=== PATIENT | female | born 1945 | race Caucasian/White ===

== ENCOUNTER 2017-01-03 07:47 | Day surgery (SDC) | payer OTHER, MEDICARE ==
[2016-12-26 12:43] VITALS: BMI 48.8
--- NOTE | 2016-12-29 11:51 | HP ---
Admitting History and Physical - Primary Care Physician PCP: Ellis Dodson - Admission Chief Complaint: left breast cancer History of Present Illness: 71 year old postmenapausal female with screening mammogram showing left breast mass. US revealed 1.3 cm irregular mass at 3:00. US core bx 3:00 left breast was performed but patient refused a clip placement. pathology showed infiltrating mammary carcinoma. MRI breast showed newly diagnosed left breast cancer 9 to 10:00 localized and no contralateral findings. History Source: Patient Limitations to Obtaining History: No Limitations - Past Medical History Cardiovascular: Yes: HTN Endocrine: Yes: Diabetes Mellitus Additional Past Medical History: macular degeneration Right LE cellulitis 2016 - Past Surgical History Additional Past Surgical History: hospitalized for RLE cellulitis 1979 and 2015 - Advance Directives Advance Directives: Yes: Living Will, Health Care Proxy - Smoking History Smoking history: Never smoked Have you smoked in the past 12 months: No Aproximately how many cigarettes per day: 0 - Alcohol/Substance Use Hx Alcohol Use: No Home Medications - Allergies Allergies/Adverse Reactions: Allergies Allergy/AdvReac Type Severity Reaction Status Date / Time No Known Allergies Allergy Verified 10/07/16 08:07 - Home Medications Home Medications: Ambulatory Orders Metformin HCl [Glucophage] 1,000 mg PO BID 02/08/14 Glimepiride [Amaryl -] 1.5 mg PO DAILY 10/07/16 Insulin Glargine,Hum.rec.anlog [Lantus Solostar PEN (NF)] 30 units SQ DAILY Insulin Glargine,Hum.rec.anlog [Lantus Solostar PEN (NF)] 18 units SQ HS Lisinopril [Prinivil] 10 mg PO DAILY 12/26/16 Family Disease History - Family Disease History Family History: Denies Physical Examination Constitutional: Yes: Well Nourished, No Distress Breast(s): Yes: Other ( diffusely nodular breast tissue post bx changes left breast no palpable massess or adenopathy) Problem List - Problems (1) Breast cancer, left breast Code(s): C50.912 - MALIGNANT NEOPLASM OF UNSPECIFIED SITE OF LEFT FEMALE BREAST Qualifiers: Breast location: overlapping sites of breast Patient gender: female Qualified Code(s): C50.812 - Malignant neoplasm of overlapping sites of left female breast Assessment/Plan Left breast wide excision MRI localization,lymphoscintigram, sentenel node biopsy possible axillary node dissection
[2017-01-03] MEDS ORDERED: GUM MASTIC/STORAX/MSAL/ALCOHOL 1 DRP DROPSBTL MC ONE (12:35)
[2017-01-03] MEDS ORDERED: MIDAZOLAM HCL 2 MG/2 ML SINGLE DOSE VIAL ONE (13:20)
[2017-01-03] MEDS ORDERED: KETOROLAC TROMETHAMINE 30 MG/1 ML VIAL IVPUSH PRN (13:24)
[2017-01-03] MEDS ORDERED: DEXTROSE 5%-0.45% SALINE 1,000 ML IV SCH (13:30)
[2017-01-03] MEDS ORDERED: PROPOFOL 20 ML ONE ×2 (13:31)
[2017-01-03] MEDS ORDERED: SUCCINYLCHOLINE CHLORIDE 200 MG/10 ML VIAL ONE (13:32)
[2017-01-03] MEDS ORDERED: ROCURONIUM BROMIDE 50 MG/5 ML VIAL ONE (13:32)
[2017-01-03] MEDS ORDERED: LIDOCAINE HCL 2% 100 MG/5 ML DISP.SYRIN ONE (13:32)
[2017-01-03] MEDS ORDERED: ceFAZolin SODIUM 1 GM VIAL ONE (13:46)
[2017-01-03] MEDS ORDERED: DEXAMETHASONE SOD PHOSPHATE 4 MG/1 ML VIAL ONE (13:52)
[2017-01-03] MEDS ORDERED: PHENYLEPHRINE HCL 10 MG/1 ML SINGLE DOSE VIAL ONE (13:54)
[2017-01-03] MEDS ORDERED: ONDANSETRON 4 MG/2 ML VIAL IVPB PRN (13:58)
[2017-01-03] MEDS ORDERED: GLYCOPYRROLATE 0.2 MG/1 ML VIAL ONE (14:43)
[2017-01-03] MEDS ORDERED: ONDANSETRON 4 MG/2 ML VIAL ONE (14:43)
[2017-01-03] MEDS ORDERED: NEOSTIGMINE METHYLSULFATE 0.5 MG/ML - 10 ML MDV ONE (14:43)
[2017-01-03] MEDS ORDERED: LACTATED RINGERS SOLUTION 1,000 ML IV SCH (15:30)
[2017-01-03] MEDS ORDERED: oxyCODONE HCL 5 MG TABLET PO PRN (15:40)
[2017-01-03] MEDS ORDERED: PROMETHAZINE HCL 25 MG/1 ML VIAL IVPUSH PRN (15:41)
[2017-01-03] MEDS ORDERED: KETOROLAC TROMETHAMINE 30 MG/1 ML VIAL ONE (15:46)
[2017-01-03 16:25] VITALS: TEMP 98.3
[2017-01-03 17:46] VITALS: BP 122/69; PULSE 71
--- NOTE | 2017-01-04 16:36 | OP ---
DATE OF OPERATION: 01/03/2017 PREOPERATIVE DIAGNOSIS: Left breast cancer. POSTOPERATIVE DIAGNOSIS: Left breast cancer. PROCEDURE: Left partial mastectomy with tissue transfer and central lymph node biopsy. ANESTHESIA: General, intubated. ATTENDING SURGEON: Camden Dodson MD ASSISTANT BUYER: RAKESH Fontana ESTIMATED BLOOD LOSS: Minimal. COMPLICATIONS: None. PROCEDURE: Patient was made aware of the risks and benefits of the procedure and consented. She was placed in the supine position. Preoperatively she had gone to MRI, where a wire was placed next to the left breast indexed lesion, and then to Nuclear Medicine for injection of technetium for lymphatic mapping. After general anesthesia was induced, the patient was intubated. Then 3 mL of 1% isosulfan blue were locally infiltrated into peritumoral tissues. The operative site was prepped and draped in the usual sterile fashion. Waiting approximately 10 minutes, with gentle manual compression, a curvilinear incision was made in the left axilla using blunt and sharp dissection. Tissues were dissected down to the left axilla, revealing 4 distinct blue hot lymph nodes, which were surgically excised and submitted as left axillary sentinel nodes. The counts, after removal of these nodes, were less than 10% of the original baseline counts. The wound was copiously irrigated with normal saline. Hemostasis maintained by electrocautery. The wound was closed with deep 3-0 Vicryl followed by running subcuticular 4-0 Monocryl. The breast was then approached. A curvilinear incision was made next to the wire using electrocautery. Thick skin flaps were made and tissues around the wire were then sharply excised and submitted with a short suture superior, long suture lateral. Specimen radiograph confirmed the presence of the indexed lesion, which was also palpable. Additional segments were taken medial, lateral, superior, inferior, deep, and anterior, with clips at the new margins. The wound was copiously irrigated with normal saline, hemostasis maintained by electrocautery. Thick tissue flaps and skin flaps were made, which were rotated into the tissues and closed with multiple layers of 2-0 Vicryl [id number] sutures. Skin was then closed with deep 3-0 Vicryl followed by running subcuticular 4-0 Monocryl. Dermabond, sterile dressing, as well as a compression bra were then applied and the patient, having tolerated the procedure well, was transferred to the recovery room in excellent condition. CAMDEN DODSON M.D. KEN/[id number]
--- NOTE | 2017-01-06 10:57 | PATH ---
Surgical Pathology Report Patient Name: DENNIS HARRISON [facility]. Rec. #: [id number] /Age/Gender: 1945 (Age: 71) / F Account: [id number] Location: [facility] AMBULATORY Taken: 01/04/2017 Received: 01/04/2017 Reported: 01/06/2017 Physicians: Ellis Dodson M.D. Specimen(s) Received A: LEFT AXILLARY SENTINEL NODE B: LEFT BREAST WIDE EXCISION C: LEFT BREAST MEDIAL MARGIN D: LEFT BREAST LATERAL MARGIN E: LEFT BREAST ANTERIOR MARGIN F: LEFT BREAST DEEP MARGIN G: LEFT BREAST SUPERIOR MARGIN H: LEFT BREAST INFERIOR MARGIN Clinical History Left breast Ca Final Diagnosis A. lymph node, left axillary sentinel, excision: Four lymph nodes, negative for metastatic carcinoma (0/4). B. breast, left, wide excision: Invasive lobular carcinoma, pleomorphic type (nuclear grade 3), measuring 1.4 cm in greatest dimension, microscopically. (see note) Lobular carcinoma in situ (LCIS), pleomorphic and classical type. Invasive carcinoma is close to (< 1 mm) THE ANTERIOR MARGIN. SEE SPECIMENS C-H FINAL MARGINS. NO LYMPHOVASCULAR INVASION IS IDENTIFIED. REMAINING BREAST TISSUE SHOWS CYSTIC AND PAPILLARY APOCRINE METAPLASIA AND ATYPICAL DUCTAL HYPERPLASIA (ADH). PRIOR BIOPSY SITE CHANGES ARE PRESENT. PATHOLOGIC STAGE (pTNM): pT1c pN0. SEE ALSO INVASIVE CARCINOMA CASE SUMMARY BELOW. Note: The carcinoma is negative for E-cadherin (performed at [facility]) which supports lobular phenotype. C. breast, left, medial margin, excision: Benign breast tissue. D. breast, left, lateral margin, excision: Benign breast tissue. E. breast, left, anterior margin, excision: Breast tissue showing few foci of LCIS, classical type. F. breast, left, deep margin, excision: Benign fibroadipose tissue and skeletal muscle. G. breast, left, superior margin, excision: Benign breast tissue. H. breast, left, inferior margin, excision: Benign breast tissue. Comments Breast Invasive Carcinoma: Surgical Pathology Cancer Case Summary Based on AJCC/UICC TNM, 7th edition Procedure _X_ Excision with image-guided localization Lymph Node Sampling _X_ [place] lymph node(s) Specimen Laterality _X_ Left Tumor Size: Size of Largest Invasive Carcinoma: 1.4 cm Tumor Focality _X_ Single focus of invasive carcinoma Macroscopic and Microscopic Extent of Tumor Nipple _X_ Not applicable (excisions less than total mastectomy) Ductal Carcinoma In Situ (DCIS) _X_ No DCIS is present Histologic Type of Invasive Carcinoma : _X_ Invasive lobular carcinoma Histologic Grade: (Stratton Histologic Score) Tubular Differentiation _X_ Score cannot be determined Nuclear Pleomorphism _X_ Score 3 Mitotic Rate _X_ Score 2 Overall Grade _X_ Score cannot be determined. Margins _X_ Margins uninvolved by invasive carcinoma Distance from closest margin: Invasive carcinoma is < 1mm from the anterior margin in wide excision B. Final anterior margin E is negative for carcinoma. Lymph-Vascular Invasion _X_ Not identified Lymph Nodes Total number of lymph nodes examined (sentinel and nonsentinel): 4 Number of sentinel lymph nodes examined: 4 Number of lymph nodes with macrometastases ( > 2 mm): 0 Number of lymph nodes with micrometastases (>0.2 mm to 2 mm and/or >200cells):0 Number of lymph nodes with isolated tumor cells (=0.2 mm and =200 cells): 0 Extranodal Extension _X_ Not applicable Pathologic Staging (pTNM) Primary Tumor (Invasive Carcinoma): pT1c Regional Lymph Nodes (pN): pN0 (sn) Biomarker Studies Results of ER and LA studies performed on this specimen (block B1) at [facility] are as follows: ER (clone [id number] mouse monoclonal antibody by [employer]): 100 % nuclear staining with strong intensity (Positive). LA (clone16 mouse monoclonal antibody by [employer]): 80 % nuclear staining with strong intensity (Positive). Results of Her2 and Ki67 studies will be reported separately in an addendum. Positive and negative controls (internal if applicable) show appropriate results. Formalin fixation and cold ischemic times are within current ASCO/CAP recommendations for ER, LA and Her2 testing. Electronically Signed Kim Lancaster M.D. Addendum Reported: 01/09/2017 Addendum Diagnosis Results of Her2 (IHC) & Ki-67 studies performed at [place], [place] ([id number]) are as follows: Her2 IHC (EP3 from [employer], formerly known as [id number], using [employer] Polymer Refine detection kit): 1+ (Negative). Ki-67: ~20% (Intermediate). Positive and negative controls (internal if applicable) show appropriate results. Kim Lancaster M.D. Gross Description A. Received in formalin, labeled "left axillary sentinel node," are 4 mistry, irregular lymph nodes with attached fat ranging from 0.8 x 0.6 x 0.4 cm to 2.0 x 0.8 x 0.8 cm. The specimens are sectioned and entirely submitted in 7 cassettes as follows: 1-one whole bisected lymph node; 2-3-one whole trisected lymph node; 4-5-one whole trisected lymph node; 6-7-one whole trisected lymph node. B. Received in formalin, labeled "left breast wide excision," is a 5.8 x 4.5 x 2.3 cm. mistry-yellow, irregular portion of fibroadipose tissue with a needle localization wire present. There is a short suture marking the superior aspect and a long suture marking the lateral aspect, per the surgeon. There is no skin present. The specimen is inked as follows: superior and lateral blue; inferior green; medial yellow; anterior red; deep black. The specimen is serially sectioned from superior to inferior. Sectioning reveals a 1.3 x 1.0 x 1.0 cm mistry, ill-defined, firm mass abutting the anterior margin. The mass is at 0.6 cm from the deep margin, 0.7 cm from the inferior margin and 0.9 cm from the medial margin. There is a separate 0.3 x 0.3 x 0.2 cm mistry, firm nodule at 1.2 cm superior to the mass. The nodule is at 0.4 cm from the deep margin. The remaining breast parenchyma displays foci of fibrous tissue. Junior Accountant Bookkeeper sections are submitted in 11 cassettes as follows: 1-full-face section of mass with anterior, medial and deep margins; 4-0-housipudqg mass with anterior, medial and deep margins; 4-6-fibrous tissue surrounding mass with anterior, lateral and deep margins; 1-1-jyjsgizi nodule each with anterior and deep margins; 9-section between mass and nodule with anterior and deep margins; 10-superior margin; 11-inferior margin. Time to formalin fixation: 3 minutes Total formalin fixation time: Approximately 27 hours. C. Received in formalin, labeled "left breast medial margin," is a 3.5 x 1.8 x 0.8 cm irregular portion of fibroadipose tissue with a clip marking the new margin, per the surgeon. The new margin is inked green and the specimen is serially sectioned. The specimen is entirely submitted in 4 cassettes. D. Received in formalin, labeled "left breast lateral margin," is a 3.2 x 2.1 x 0.9 cm irregular portion of fibroadipose tissue with a clip marking the new margin, per the surgeon. The new margin is inked green and the specimen is serially sectioned. The specimen is entirely submitted in 3 cassettes. E. Received in formalin, labeled "left breast anterior margin," is a 1.5 x 1.1 x 0.8 cm irregular portion of fibroadipose tissue with a clip marking the new margin, per the surgeon. The new margin is inked green and the specimen is serially sectioned. The specimen is entirely submitted in 2 cassettes. F. Received in formalin, labeled "left breast deep margin" is a 3.3 x 2.7 x 1.0 cm irregular portion of fibroadipose tissue with a clip marking the new margin, per the surgeon. The new margin is inked green and the specimen is serially sectioned. The specimen is entirely submitted in 4 cassettes. G. Received in formalin, labeled "left breast superior margin," is a 3.2 x 2.5 x 0.7 cm irregular portion of fibroadipose tissue with a clip marking the new margin, per the surgeon. The new margin is inked green and the specimen is serially sectioned. The specimen is entirely submitted in 4 cassettes. H. Received in formalin, labeled "left breast inferior margin," is a 2.7 x 2.0 x 0.7 cm irregular portion of fibroadipose tissue with a clip marking the new margin, per the surgeon. The new margin is inked green and the specimen is serially sectioned. The specimen is entirely submitted in 3 cassettes. 01/04/2017 saudi01/04/2017
== END 2017-01-03 17:47 | disposition home or self-care (01) ==
LOC: FASU 07:47
PROVIDERS: ATTEND Surgery Surgical Oncology
PROC: 0HBU0ZZ Excision of Left Breast, Open Approach (ICD-10-PCS; principal; 2017-01-03 13:00)
PROC: 07B60ZX Excision of Left Axillary Lymphatic, Open Approach, Diagnostic (ICD-10-PCS; 2017-01-03 13:00)
PROC: C71L1ZZ Planar Nuclear Medicine Imaging of Upper Chest Lymphatics using Technetium 99m (Tc-99m) (ICD-10-PCS; 2017-01-03 13:00)
PROC: 0JX60ZB Transfer Chest Subcutaneous Tissue and Fascia with Skin and Subcutaneous Tissue, Open Approach (ICD-10-PCS; 2017-01-03 13:00)
DX: C50.912 Malignant neoplasm of unspecified site of left female breast (principal); I10 Essential (primary) hypertension; E11.9 Type 2 diabetes mellitus without complications; Z79.4 Long term (current) use of insulin; Z87.2 Personal history of diseases of the skin and subcutaneous tissue; H35.30 Unspecified macular degeneration
CPT/HCPCS: 77021-TC; 78195-TC; 88307-TC; 88342-TC; 94760; A4648; A9541; C1887; G0206-TC

== ENCOUNTER 2017-01-16 08:02 | Emergency (ER) | payer OTHER, MEDICARE ==
[2017-01-16 08:07] VITALS: BP 149/84; PULSE 102; TEMP 98.1; BMI 48.8
--- NOTE | 2017-01-16 08:14 | PDOC ---
History of Present Illness - General Chief Complaint: Wound Stated Complaint: SURGICAL WOUND DRAINAGE Time Seen by Provider: 01/16/17 08:13 History Source: Patient Exam Limitations: No Limitations - History of Present Illness Initial Comments: 01/16/17 08:15 71y F hx of IDDM, HTN, recent dx of infiltrating mammary carcinoma s/p lumpectomy approximately 01/03, has been doing well since but this morning she took a pad off her bra and noticed dark red blood spurting from her wound. The patient notes taht she has had bruisiing since almost immediately after the surgery to her breast and LUQ, but no active bleeding. Pt notes she has had URI like symptoms (nasal congestion, mild cough, denies fever/chills, briones) and is recently started on augmentin/flonase/mucinex. pt denies any cp, lightheadedness. Pt is not on any blood thinners. Past History - Past Medical History Allergies/Adverse Reactions: Allergies Allergy/AdvReac Type Severity Reaction Status Date / Time No Known Allergies Allergy Verified 10/07/16 08:07 Home Medications: Ambulatory Orders Metformin HCl [Glucophage] 1,000 mg PO BID 02/08/14 Glimepiride [Glimepiride -] 1.5 mg PO DAILY 10/07/16 Insulin Glargine,Hum.rec.anlog [Lantus Solostar PEN -] 30 units SQ DAILY Insulin Glargine,Hum.rec.anlog [Lantus Solostar PEN -] 18 units SQ HS 12/26/16 Lisinopril [Prinivil] 10 mg PO DAILY 12/26/16 Oxycodone HCl/Acetaminophen [Percocet 5-325 mg Tablet] 1 - 2 tab PO Q6H PRN #30 tab MDD 6 01/03/17 Zinc [Zinc Lozenge] 25 mg PO ASDIR PRN 01/03/17 Anemia: No Asthma: No Cancer: Yes (Left Breast) Cardiac Disorders: No CVA: No COPD: No CHF: No Dementia: No Diabetes: Yes GI Disorders: No Disorders: No HTN: No Hypercholesterolemia: No Liver Disease: No Seizures: No Thyroid Disease: No - Psycho/Social/Smoking Cessation Hx Anxiety: No Suicidal Ideation: No Smoking History: Unknown if ever smoked Have you smoked in the past 12 months: No Number of Cigarettes Smoked Daily: 0 Information on smoking cessation initiated: No Hx Alcohol Use: No Drug/Substance Use Hx: No Substance Use Type: None Hx Substance Use Treatment: No Review of Systems - Review of Systems Able to Perform ROS?: Yes Comments:: 01/16/17 08:18 Constitutional - no reported Fever, Chills, weakness, HEENT: no reported vision changes, sore throat Respiratory: no reported cough, sob, hemoptysis Cardiac: no reported chest pain, palpitations, light headedness, leg swelling Abd/GI: no reported abd pain, nausea, vomiting, blood per rectum, melena, diarrhea : no reported dysuria, frequency, discharge Musculskelatal - no reported back pain, joint swelling skin - +Bleding wound no reported bruising, erythema, rash neurological: no reported headache, numbness, focal weakness, tingling, ataxia, weakness hematologic: no reported anemia, easy bruising, easy bleeding *Physical Exam - Vital Signs Last Vital Signs Temp Pulse Resp BP Pulse Ox 98.1 F 102 H 18 149/84 98 01/16/17 08:05 01/16/17 08:05 01/16/17 08:05 01/16/17 08:05 01/16/17 08:05 - Physical Exam Comments: 01/16/17 08:18 GENERAL: The patient is awake, alert, and fully oriented, Nontoxic - in no acute distress. Obese LUNGS: Breath sounds equal, clear to auscultation bilaterally. No wheezes, no rhonchi, no rales. HEART: Regular rate and rhythm, ABDOMEN: Soft, nontender, obese abdomen EXTREMITIES: Normal range of motion, b/l pitting edema +2 to knee,no calf tenderness NEUROLOGICAL: No facial assymetry, Normal speech, SKIN: s/p lumpectomy, wound with steristrips in place on the superior lateral quadrant of L breast and in the mid breast with mild oozing. ecchymosis noted on the lower breast and tracking into the LUQ of abdomen, oozing of dark red blood that is non foul smelling on palpation of wound area. No erythmea, induration, fluctuance, tenderness noted. wound edges are clean Medical Decision Making - Medical Decision Making 01/16/17 08:26 71y F presenting with bleeding of her wound site of the L breast s/p lumpectomy 2 weeks ago. on exam pt has ecchymosis in the L braest with some dark red blood when pressure applied. suspect hematoma/oozing blood with dehiscence of wound. wound margins clean no signs of infection/abcess, no symptoms of anemia case d/w dr. Avila - recommends sending her to his office now for evaluation. I discussed the physical exam findings, ancillary test results and final diagnoses with the patient. I answered all of the patient's questions. The patient was satisfied with the care received and felt comfortable with the discharge plan and treatment plan. The patient will call their primary care physician within 24 hours to arrange follow-up and will return to the Emergency Department with any new, persistent or worsening symptoms. *DC/Admit/Observation/Transfer Diagnosis at time of Disposition: Hematoma (nontraumatic) of breast Wound dehiscence, surgical Qualifiers: Encounter type: initial encounter Qualified Code(s): T81.31XA - Disruption of external operation (surgical) wound, not elsewhere classified, initial encounter - Discharge Dispostion Disposition: HOME Condition at time of disposition: Stable Admit: No - Referrals Referrals: Ellis Dodson MD [Staff Physician] - - Patient Instructions Additional Instructions: Please proceed directly to Dr. Avila's office for evaluation of your hematoma. Print Language: CITIZEN OF [place]
== END 2017-01-16 08:28 | disposition home or self-care (01) ==
LOC: FER 08:02
DX: T81.31XA Disruption of external operation (surgical) wound, not elsewhere classified, initial encounter (principal); Y83.8 Other surgical procedures as the cause of abnormal reaction of the patient, or of later complication, without mention of misadventure at the time of the procedure; S20.02XA Contusion of left breast, initial encounter; Y82.9 Unspecified medical devices associated with adverse incidents; E11.9 Type 2 diabetes mellitus without complications; Z79.4 Long term (current) use of insulin; Z79.01 Long term (current) use of anticoagulants
CPT/HCPCS: 36415; 85027; 99281-25

== ENCOUNTER 2017-03-28 08:41 | Day surgery (SDC) | payer OTHER, MEDICARE ==
[2017-03-24 17:34] VITALS: BMI 48.4
--- NOTE | 2017-03-28 09:58 | HP ---
Past Medical History - Primary Care Physician PCP:: Frandy Salazar - Admission Chief Complaint: postmenopausal vaginal bleeding History of Present Illness: 71 yo f with hx of DM, HTN, obesity and postmenopausal vaginal bleeding . admitted for hysteroscopy D&C, risks , benfit ,ulternatives discussed History Source: Patient Limitations to Obtaining History: No Limitations - Past Medical History Cardiovascular: Yes: HTN Endocrine: Yes: Diabetes Mellitus - Past Surgical History Hx Myomectomy: No Hx Transabdominal Cerclage: No - Advance Directives Advance Directives: Yes: Living Will, Health Care Proxy - Smoking History Smoking history: Unknown if ever smoked Have you smoked in the past 12 months: No Aproximately how many cigarettes per day: 0 - Alcohol/Substance Use Hx Alcohol Use: No - Social History History of Recent Travel: No Home Medications - Allergies Allergies/Adverse Reactions: Allergies Allergy/AdvReac Type Severity Reaction Status Date / Time No Known Allergies Allergy Verified 03/28/17 09:47 - Home Medications Home Medications: Ambulatory Orders Metformin HCl [Glucophage] 1,000 mg PO BID 02/08/14 Glimepiride [Glimepiride -] 2 mg PO DAILY 10/07/16 Lisinopril [Prinivil] 10 mg PO DAILY 12/26/16 Zinc [Zinc Lozenge] 25 mg PO ASDIR PRN 01/03/17 Bilberry 100 mg PO DAILY 03/24/17 Calcium Carb/Magnesium Oxid/D3 [Calcium Magnesium + D Tablet] 03/24/17 Insulin Glargine,Hum.rec.anlog [Toujeo Solostar] 50 SQ DAILY 03/24/17 Vitamin D - 03/24/17 Review of Systems - Review of Systems Constitutional: reports: No Symptoms Eyes: reports: No Symptoms HENT: reports: No Symptoms Neck: reports: No Symptoms Cardiovascular: reports: No Symptoms Respiratory: reports: No Symptoms Gastrointestinal: reports: No Symptoms Genitourinary: reports: No Symptoms Breasts: reports: No Symptoms Reported Musculoskeletal: reports: No Symptoms Integumentary: reports: No Symptoms Neurological: reports: No Symptoms Endocrine: reports: No Symptoms Hematology/Lymphatic: reports: No Symptoms Psychiatric: reports: No Symptoms Physical Exam-BUSINESS AND FINANCIAL COUNSEL Vital Signs: Vital Signs Temperature 98.1 F 03/28/17 09:46 Pulse Rate 85 03/28/17 09:46 Respiratory Rate 20 03/28/17 09:46 Blood Pressure 163/81 03/28/17 09:46 O2 Sat by Pulse Oximetry (%) 96 03/28/17 09:40 Constitutional: Yes: Well Nourished, No Distress, Calm Eyes: Yes: WNL, Conjunctiva Clear, EOM Intact HENT: Yes: WNL, Atraumatic, Normocephalic Neck: Yes: WNL, Supple, Trachea Midline Cardiovascular: Yes: WNL, Regular Rate and Rhythm Respiratory: Yes: WNL, Regular, CTA Bilaterally Gastrointestinal: Yes: WNL ...Rectal Exam: Yes: WNL Renal/: Yes: WNL External Genitalia: Yes: Normal Internal Exam Deferred: No Vaginal Exam: Yes: Normal, Bleeding Cervix: Yes: Normal, Bleeding Uterus: Yes: Normal Adnexa: Not Palpable: Left, Right Breast(s): Yes: WNL Musculoskeletal: Yes: WNL Extremities: Yes: WNL Integumentary: Yes: WNL Neurological: Yes: WNL, Alert, Oriented ...Motor Strength: WNL Psychiatric: Yes: WNL, Alert, Oriented Problem List - Problem (1) Postmenopausal bleeding Code(s): N95.0 - POSTMENOPAUSAL BLEEDING (2) Breast cancer Code(s): C50.919 - MALIGNANT NEOPLASM OF UNSP SITE OF UNSPECIFIED FEMALE BREAST Qualifiers: Patient sex: female Laterality: left Assessment/Plan hysteroscopy D&C
[2017-03-28] MEDS ORDERED: PROPOFOL 20 ML ONE ×2 (10:01)
[2017-03-28] MEDS ORDERED: ONDANSETRON 4 MG/2 ML VIAL IVPB PRN (11:11)
[2017-03-28] MEDS ORDERED: oxyCODONE HCL 5 MG TABLET PO PRN ×2 (11:11→11:19)
[2017-03-28] MEDS ORDERED: IBUPROFEN 800 MG/8 ML IJ IVPB PRN (11:11)
[2017-03-28] MEDS ORDERED: IBUPROFEN 600 MG TABLET (FP) PO PRN (11:11)
[2017-03-28] MEDS ORDERED: ELECTROLYTE-148 SOLN 1,000 ML IV SCH (11:15)
[2017-03-28] MEDS ORDERED: ONDANSETRON 4 MG/2 ML VIAL IVPUSH PRN (11:19)
[2017-03-28] MEDS ORDERED: ACETAMINOPHEN 325 MG TABLET (FP) PO PRN (11:19)
[2017-03-28] MEDS ORDERED: LACTATED RINGERS SOLUTION 1,000 ML IV SCH (11:30)
[2017-03-28 12:20] VITALS: TEMP 98
[2017-03-28 14:40] VITALS: BP 133/56
[2017-03-28 14:52] VITALS: PULSE 82
--- NOTE | 2017-03-29 13:51 | PATH ---
Surgical Pathology Report Patient Name: DENNIS HARRISON [facility]. Rec. #: [id number] /Age/Gender: 1945 (Age: 71) / F Account: [id number] Location: [facility] SURGICAL Taken: 03/28/2017 Received: 03/28/2017 Reported: 03/29/2017 Physicians: Frandy Salazar M.D. Specimen(s) Received A: ENDOCERVICAL CURETTINGS B: ENDOMETRIAL CURETTINGS C: ENDOMETRIAL POLYP Clinical History Endometrial thickening, postmenopausal bleeding Final Diagnosis A. ENDOCERVIX, CURETTAGE: FRAGMENTS OF BENIGN ENDOCERVICAL TISSUE WITH SQUAMOUS METAPLASIA. FRAGMENTS OF BENIGN SQUAMOUS EPITHELIUM. B. ENDOMETRIUM, CURETTAGE: FRAGMENT OF ENDOMETRIAL POLYP. BACKGROUND STRIPS OF ATROPHIC ENDOMETRIUM. FRAGMENTS OF BENIGN ENDOCERVICAL TISSUE AND BENIGN SQUAMOUS EPITHELIUM. C. ENDOMETRIAL POLYP: FRAGMENTS OF ENDOMETRIAL POLYP. BACKGROUND STRIPS OF ATROPHIC ENDOMETRIUM. SCANT FRAGMENTS OF BENIGN ENDOCERVICAL TISSUE AND BENIGN SQUAMOUS EPITHELIUM. Electronically Signed Vinay Andrews M.D. Gross Description A. Received in formalin labeled "endocervical curettings" is a 2.3 x 1.6 x 0.3 cm aggregate of blood-tinged mucus, possibly containing soft tissue fragments. The formalin is filtered and the specimen is entirely submitted in one cassette. B. Received in formalin labeled "endometrial curettings" is a 1.0 x 0.7 x 0.2 cm aggregate of mistry red soft tissue fragments. The formalin is filtered and the specimen is entirely submitted in one cassette. C. Received in formalin labeled "endometrial polyp" is a 1.0 x 1.0 x 0.2 cm aggregate of mistry red soft tissue fragments. The formalin is filtered and the specimen is entirely submitted in one cassette. /03/28/2017 saudi03/28/2017
--- NOTE | 2017-03-30 11:07 | OP ---
DATE OF OPERATION: 03/28/2017 PREOPERATIVE DIAGNOSIS: Postmenopausal bleeding. POSTOPERATIVE DIAGNOSIS: Postmenopausal bleeding. PROCEDURE: Hysteroscopy, dilation and curettage, and polypectomy. SURGEON: Frandy Salazar MD ANESTHESIA: General. ESTIMATED BLOOD LOSS: 15 mL. DESCRIPTION OF PROCEDURE: The patient was taken to the operating room. Under adequate general anesthesia, examination under anesthesia revealed external genitalia to be normal. Vagina was normal. Cervix was clean. Uterus was normal size. Adnexa no masses were palpable. Then with a weighted speculum in the vagina, anterior lip of the cervix was grasped with a single-tooth tenaculum, and the cervical curetting was done then uterine cavity was sounded to 7 cm. Hysteroscope was introduced into the uterine cavity, and the cervix canal appeared normal. There was a polyp at the fundal portion of the uterus approximately 1 cm. Both cornual regions were identified. The rest of the endometrium appeared to be atrophic. Then the cervix was gradually dilated with Hegar dilator. With a polyp forceps, the polyp was were removed and then hysteroscope was introduced. Polyps had been removed in its entirety. The patient tolerated the procedure well and left the OR in good condition. Cristina [id number]
== END 2017-03-28 13:30 | disposition home or self-care (01) ==
LOC: JASU-SURG 08:41
PROVIDERS: ATTEND Obstetrics & Gynecology
PROC: 0UB98ZX Excision of Uterus, Via Natural or Artificial Opening Endoscopic, Diagnostic (ICD-10-PCS; principal; 2017-03-28 10:00)
PROC: 0UDB8ZX Extraction of Endometrium, Via Natural or Artificial Opening Endoscopic, Diagnostic (ICD-10-PCS; 2017-03-28 10:00)
DX: N95.0 Postmenopausal bleeding (principal); N84.0 Polyp of corpus uteri; R93.8 Abnormal findings on diagnostic imaging of other specified body structures
CPT/HCPCS: 88305-TC; 94760

== ENCOUNTER 2019-02-15 15:15 | Emergency (ER) | payer OTHER, MEDICARE ==
[2019-02-15 15:22] VITALS: BP 161/63; PULSE 86; TEMP 97.6; BMI 46.6
[2019-02-15] MEDS ORDERED: DIPHTH,PERTUSS(ACELL),TET 0.5 ML DISP.SYRIN IM ONE ×2 (15:25→15:39)
--- NOTE | 2019-02-15 15:25 | PDOC ---
Rapid Medical Evaluation Chief Complaint: Laceration Time Seen by Provider: 02/15/19 15:21 Medical Evaluation: Allergies Allergy/AdvReac Type Severity Reaction Status Date / Time No Known Allergies Allergy Verified 03/28/17 09:47 02/15/19 15:22 I have performed a brief in-person evaluation of this patient. The patient presents with a chief complaint of:L 4th finger lac Pertinent physical exam findings:bandage in place, defer exam to ED provider I have ordered the following: boostrix The patient will proceed to the ED for further evaluation. Discharge Disposition - Diagnosis Finger laceration Qualifiers: Encounter type: initial encounter Finger: ring finger Damage to nail status: without damage Foreign body presence: without foreign body Laterality: left Qualified Code(s): S61.215A - Laceration without foreign body of left ring finger without damage to nail, initial encounter - Referrals - Patient Instructions - Post Discharge Activity
--- NOTE | 2019-02-15 16:18 | PDOC ---
History of Present Illness - General Chief Complaint: Laceration Stated Complaint: CUT FINGER Time Seen by Provider: 02/15/19 15:21 History Source: Patient Exam Limitations: No Limitations Past History - Past Medical History Allergies/Adverse Reactions: Allergies Allergy/AdvReac Type Severity Reaction Status Date / Time No Known Allergies Allergy Verified 02/15/19 15:22 Home Medications: Ambulatory Orders metFORMIN HCL [Glucophage] 1,000 mg PO BID 02/08/14 Glimepiride [Glimepiride -] 2 mg PO DAILY 10/07/16 Lisinopril [Prinivil] 10 mg PO DAILY 12/26/16 Zinc [Zinc Lozenge] 25 mg PO ASDIR PRN 01/03/17 Bilberry 100 mg PO DAILY 03/24/17 Calcium Carb/Magnesium Oxid/D3 [Calcium Magnesium + D Tablet] 1 tablet PO DAILY 03/24/17 Insulin Glargine,Hum.rec.anlog [Toujeo Solostar] 50 units SQ DAILY 03/24/17 Vitamin D - 2,000 units PO DAILY 03/24/17 Anemia: No Asthma: No Cancer: Yes (Left Breast) Cardiac Disorders: No CVA: No COPD: No CHF: No Dementia: No Diabetes: Yes GI Disorders: No Disorders: No HTN: No Hypercholesterolemia: No Liver Disease: No Seizures: No Thyroid Disease: No - Suicide/Smoking/Psychosocial Hx Smoking History: Never smoked Have you smoked in the past 12 months: No Number of Cigarettes Smoked Daily: 0 Information on smoking cessation initiated: No Hx Alcohol Use: No Drug/Substance Use Hx: No Substance Use Type: None Hx Substance Use Treatment: No *Physical Exam - Vital Signs Last Vital Signs Temp Pulse Resp BP Pulse Ox 97.6 F 86 18 161/63 100 02/15/19 15:20 02/15/19 15:20 02/15/19 15:20 02/15/19 15:20 02/15/19 15:20 - Physical Exam General Appearance: No: Apparent Distress Extremity: positive: Normal Capillary Refill, Normal Range of Motion Integumentary: positive: Other (around 1.5 cm linear laceration along tip of L 4th finger, no deformity of extremities noted) Neurologic: positive: Alert, Normal Mood/Affect Procedures - Laceration/Wound Repair Left Hand 4th digit Wound Length: to 2.5 cm Wound Explored: clean, no foreign body present Wound's Depth, Shape: superficial Betadine Prep: Yes Anesthesia: 1% Lidocaine Wound Repaired With: Sutures Suture Size/Type: 5:0, nylon Number of Sutures: 3 Layer Closure: No Medical Decision Making - Medical Decision Making 73 y/o F hx of DM, L breast CA s/p lumpectomy presents with laceration to L ring finger that occurred around 1:30 PM today. States she was cutting grapes with scissors and accidentally cut along finger. Unsure of last tetanus Lac repaired (see procedure note) Tetanus updated 02/15/19 16:14 *DC/Admit/Observation/Transfer Diagnosis at time of Disposition: Finger laceration Qualifiers: Encounter type: initial encounter Finger: ring finger Damage to nail status: without damage Foreign body presence: without foreign body Laterality: left Qualified Code(s): S61.215A - Laceration without foreign body of left ring finger without damage to nail, initial encounter - Discharge Dispostion Disposition: HOME Condition at time of disposition: Stable Decision to Admit order: No - Referrals - Patient Instructions Printed Discharge Instructions: DI for Laceration Repair Additional Instructions: Thank you for choosing [facility]. It was a pleasure taking care of you. Keep wound dry for the first 24 hours. Please return in 7-10 to have sutures removed Return to the Emergency Department if your symptoms worsen or persist, you have fever, redness, swelling, pustular discharge, streaking or other concerning symptoms. - Post Discharge Activity
== END 2019-02-15 16:23 | disposition home or self-care (01) ==
LOC: JERFT 15:15
PROC: 3E0234Z Introduction of Serum, Toxoid and Vaccine into Muscle, Percutaneous Approach (ICD-10-PCS; principal; 2019-02-15)
PROC: 0HQGXZZ Repair Left Hand Skin, External Approach (ICD-10-PCS; 2019-02-15)
DX: S61.215A Laceration without foreign body of left ring finger without damage to nail, initial encounter (principal); W27.2XXA Contact with scissors, initial encounter; Y93.G1 Activity, food preparation and clean up; Y92.018 Other place in single-family (private) house as the place of occurrence of the external cause; Y99.8 Other external cause status
CPT/HCPCS: 12001-25; 90471; 90715; 99281-25

== ENCOUNTER 2021-06-09 04:49 | Day surgery (SDC) | payer OTHER, MEDICARE ==
[2021-06-07 18:03] VITALS: BMI 45.1
[~2021-06-09 04:49] MED LIST: ACETAMINOPHEN 325 MG TABLET (FP) PO PRN
[2021-06-09] MEDS ORDERED: LIDOCAINE HCL/PF 1% SDV 5ML VIAL ONE (07:28)
[2021-06-09] MEDS ORDERED: BUPIVACAINE HCL/PF 0.75% 10 ML VIAL ONE (07:28)
[2021-06-09] MEDS ORDERED: LIDOCAINE HCL/PF 2% SDV 5ML VIAL ONE ×2 (07:28→11:20)
[2021-06-09] MEDS ORDERED: TRYPAN BLUE 0.5 ML DISP.SYRIN ONE (07:28)
[2021-06-09] MEDS ORDERED: KETOROLAC TROMETHAMINE 0.5% EYE DROP 1 DROP DROPS ONE (08:59)
[2021-06-09] MEDS ORDERED: OFLOXACIN 0.3% OPHTHALMIC SOLUTION 5 ML BOTTLE ONE (08:59)
[2021-06-09] MEDS ORDERED: TROPICAMIDE 1% OPHTH SOLN 15 ML BOTTLE ONE (08:59)
[2021-06-09] MEDS ORDERED: CYCLOPENTOLATE HCL 1% OPHTH SOLN 2 ML BOTTLE ONE (08:59)
[2021-06-09] MEDS ORDERED: PROPOFOL 20 ML ONE (11:19)
[2021-06-09] MEDS ORDERED: BUPIVACAINE HCL/PF 0.75% 10 ML VIAL RB ONE (11:30)
[2021-06-09] MEDS ORDERED: LIDOCAINE HCL/PF 2% SDV 5ML VIAL INF ONE ×2 (11:30→11:33)
[2021-06-09] MEDS ORDERED: BUPIVACAINE HCL/PF 0.75% 10 ML VIAL PNB ONE (11:33)
[2021-06-09] MEDS ORDERED: LIDOCAINE HCL 1% PRESERVATIVE FREE - 30ML VIAL IO ONE (11:39)
[2021-06-09] MEDS ORDERED: CHONDROITIN SU A/HYALUR SOD 1 KIT IO ONE (11:39)
[2021-06-09] MEDS ORDERED: EPINEPHrine/PF 1 MG/1 ML (1:1,000) AMPULE SQ ONE (11:44)
[2021-06-09] MEDS ORDERED: ONDANSETRON 4 MG/2 ML VIAL IVPB ONE (12:50)
[2021-06-09] MEDS ORDERED: ONDANSETRON 4 MG/2 ML VIAL ONE (12:50)
[2021-06-09 14:33] VITALS: BP 131/62; PULSE 74; TEMP 97.6
[2021-06-09] MEDS: CYCLOPENTOLATE HCL 1% OPHTH SOLN 2 ML BOTTLE OP SCH ×2 (19:19→19:20)
[2021-06-09] MEDS: KETOROLAC TROMETHAMINE 0.5% EYE DROP 1 DROP DROPS OP SCH ×2 (19:20→19:21)
[2021-06-09] MEDS: TROPICAMIDE 1% OPHTH SOLN 15 ML BOTTLE OP SCH ×2 (19:21→19:22)
[2021-06-09] MEDS: PHENYLEPHRINE 2.5% OPHTH SOLN 15 ML BOTTLE OP SCH (19:23)
[2021-06-09] MEDS: OFLOXACIN 0.3% OPHTHALMIC SOLUTION 5 ML BOTTLE OP SCH ×2 (19:24→19:25)
== END 2021-06-09 14:10 | disposition home or self-care (01) ==
LOC: JASU-SURG 04:49
PROVIDERS: ATTEND Ophthalmology
PROC: 08RK3JZ Replacement of Left Lens with Synthetic Substitute, Percutaneous Approach (ICD-10-PCS; principal; 2021-06-09 11:00)
DX: H26.9 Unspecified cataract (principal)
CPT/HCPCS: 82962